=== PATIENT | male | born 1975 ===

== ENCOUNTER 2019-05-18 17:49 | Emergency (ER) | payer SELFPAY ==
[~2019-05-18] VITALS: Ht 180.3 cm; Wt 75.0 kg
--- NOTE | 2019-05-18 17:53 | NUR ---
PT NIL X1
[2019-05-18] MEDS ORDERED: ASPIRIN 81 MG TABLET CHEW PO ONE (19:30)
--- NOTE | 2019-05-18 19:40 | NUR ---
PT SLEEPING IN GURNEY. AWAKENS EASILY, ANSWERS QUESTIONS BUT DOESN'T OPEN EYES. C/O CHEST PAIN X SEVERAL HOURS. DENIES CARDIAC HX. DENIES COUGH. RV'WD POC WITH PT. ON ALL MONITORS, VSS.
[2019-05-18 20:02] LABS: BASOPHILS # (AUTO) 0.04 x10^3/uL (0-0.1); BASOPHILS % (AUTO) 0 % (0-1); EOSINOPHILS # (AUTO) 0.05 x10^3/uL (0-0.4); EOSINOPHILS % (AUTO) 0 % (1-7); LYMPHOCYTES # (AUTO) 1.36 x10^3/uL (1-3.4); LYMPHOCYTES % (AUTO) 12 % (22-44); MD NO; MEAN CORPUSCULAR HGB CONC 33.7 g/dL (33.2-36.2); MEAN CORPUSCULAR VOLUME 91.9 fL (81-97); MEAN PLATELET VOLUME 7.7 fL (7.4-10.4); MONOCYTES % (AUTO) 6 % (2-9); NEUTROPHILS # (AUTO) 9.61 x10^3/uL (1.8-6.8); NEUTROPHILS % (AUTO) 82 % (42-75); PLATELET COUNT 190 x10^3/uL (130-400); RED BLOOD COUNT 4.88 x10^6/uL (4.38-5.82); RED CELL DISTRIBUTION WIDTH 13.8 % (9.4-14.8)
[2019-05-18] MEDS ORDERED: ASPIRIN 81 MG TABLET CHEW ONE (20:05)
[2019-05-18 20:08] LABS: ALBUMIN 3.8 g/dL (3.4-5.0); ANION GAP 6 mmol/L (5-15); CALCIUM 8.7 mg/dL (8.5-10.1); CHLORIDE 109 mmol/L (98-107)
[2019-05-18 20:11] LABS: ALANINE AMINOTRANSFERASE 62 U/L (12-78); ALKALINE PHOSPHATASE 86 U/L (45-117); BILIRUBIN,TOTAL 0.3 mg/dL (0.2-1.0); TOTAL PROTEIN 7.4 g/dL (6.4-8.2); TROPONIN I < 0.015 ng/mL (0.000-0.045)
[2019-05-18] MEDS ORDERED: KETOROLAC 60 MG/2 ML ONE (20:45)
[2019-05-18 20:48] VITALS: BP 112/54
[2019-05-18] MEDS ORDERED: KETOROLAC 30 MG/1 ML IM ONE (21:00)
== END 2019-05-18 21:01 | disposition home or self-care (01) ==
LOC: EDBD 17:49 → ED 18:20
DX: R07.89 Other chest pain (principal); F17.210 Nicotine dependence, cigarettes, uncomplicated
CPT/HCPCS: 36415; 71046; 80053; 84484; 85025; 93005; 96372; 99285; J1885